=== PATIENT | male | born 1975 | race Caucasian/White ===

== ENCOUNTER 2018-10-26 17:21 | Emergency (ER) | payer SELFPAY ==
[~2018-10-26] VITALS: Ht 177.8 cm; Wt 94.5 kg
[~2018-10-26 17:21] MED LIST: ALEVE220 MG PO; BAYER CHEWABLE81 MG PO; CIPRO500 MG PO; FLAGYL250 MG PO; LAMICTAL25 MG PO; MIRALAX17 GM PO; PROTONIX40 MG PO
[2018-10-26 18:00] VITALS: Ht 177.8 cm; Wt 94.5 kg
[2018-10-26 18:23] LABS: BASOPHILS 0.3 % (0-2); EOSINOPHILS 3.3 % (0-7); HEMATOCRIT 48.3 % (42.0-54.0); HEMOGLOBIN 17.2 g/dL (13.5-17.5); IMMATURE GRANULOCYTES 0.3 % (0-5); LYMPHOCYTES 28.4 % (15-50); MCH 30.1 pg (26.0-34.0); MCHC 35.6 g/dL (31.0-37.0); MCV 84.6 fL (80.0-100.0); MEAN PLATELET VOLUME 9.4 fL (7.4-10.4); MONOCYTES 11.4 % (2-11); NEUTROPHILS 56.3 % (40-80); PLATELET COUNT 233 10x3/uL (130-400); RBC 5.71 10x6/uL (4.20-6.10); RDW 12.5 % (11.5-14.5)
[2018-10-26 18:31] LABS: APPEARANCE CLEAR (CLEAR); BILIRUBIN NEGATIVE (NEGATIVE); COLOR YELLOW (YELLOW); GLUCOSE NEGATIVE (NEGATIVE); KETONE NEGATIVE (NEGATIVE); NITRITE NEGATIVE (NEGATIVE); PROTEIN NEGATIVE (NEGATIVE); SPECIFIC GRAVITY 1.015 (1.005-1.020); UROBILINOGEN NORMAL (NORMAL)
[2018-10-26 18:40] LABS: ALBUMIN 3.9 g/dL (3.4-5.0); ALKALINE PHOSPHATASE 73 U/L (46-116); ALT (SGPT) 38 U/L (10-68); CALC OSMOLALITY 276 mosm/kg (275-300); CALCIUM 9.3 mg/dL (8.5-10.1); CARBON DIOXIDE 29.5 mmol/L (21.0-32.0); CHLORIDE - SERUM 100 mmol/L (98-107); CREATININE - SERUM 0.8 mg/dL (0.6-1.3); GLUCOSE 108 mg/dL (74-106); POTASSIUM - SERUM 3.6 mmol/L (3.5-5.1); SODIUM 138 mmol/L (136-145); UREA NITROGEN 12 mg/dL (7-18); eGFR NON AFRICAN AMERICAN > 90 mL/min (90-120)
[2018-10-26] MEDS ORDERED: DICLOFENAC SODI50 MG PO (19:02)
[2018-10-26] MEDS ORDERED: CYCLOBENZAPRINE10 MG PO (19:02)
[2018-10-26 20:21] VITALS: BP 124/73
== END 2018-10-26 20:22 | disposition home or self-care (01) ==
LOC: D.ER 17:21
PROVIDERS: Family Medicine
DX: M54.16 Radiculopathy, lumbar region (principal); G40.909 Epilepsy, unspecified, not intractable, without status epilepticus; I10 Essential (primary) hypertension; F17.200 Nicotine dependence, unspecified, uncomplicated

== ENCOUNTER 2019-03-06 16:04 | Observation (INO) | payer OTHER ==
[~2019-03-06] VITALS: Ht 177.8 cm; Wt 95.5 kg
--- NOTE | ~2019-03-06 | PN ---
PATIENT:MAKAYLA HARKINS MEDICAL RECORD: [id number] LOCATION:D. D.213 ADMISSION DATE: 03/06/19 PROGRESS NOTE DATE OF SERVICE: 03/07/2019 Mr. Harkins has continued to have episodes of chest discomfort overnight, all relieved with sublingual nitro, some episodes requiring more than 1 sublingual nitro for relief. He was having chest pain during the nuclear stress test with the nuclear stress test has worsened and relieved. Now, he is having recurrent chest discomfort. His stress test showed a mildly depressed ejection fraction of 47%, but there was homogeneous uptake throughout all segments at rest and stress. Due to the recurrent episodes of chest pain that are all relieved with sublingual nitro and the persistence of his symptomatology, we will proceed with coronary angiography. TRANSINT:[id number] Voice Confirmation ID: [id number] DOCUMENT ID: [id number] OSIRIS LOMBARDI MD CC: [id number] DICTATION DATE: 03/07/19 1248 DIAMOND DIE POLISHER: 03/07/19 1431 ADM IN [place] [address] [place] [address]
--- NOTE | ~2019-03-06 | HEMODYNAMI ---
PATIENT:MAKAYLA LISA MEDICAL RECORD: [id number] : 71 LOCATION[facility] D.[address] [facility] [id number] ADMISSION DATE: 03/06/19 Generatedon:03/07/201917:00 Patient name: MAKAYLA LISA Patient #: [id number] SSN: D OB: 1975 Date of study: 03/07/2019 Page: Of Hemodynamic Procedure Report Patient Data Patient Demographics Procedure consent was obtained First Name: MAKAYLA Gender: Male Last Name: SLOAN : 1975 Middle Initial: E Age: 43 year(s) Patient #: [id number] Race: Unknown Additional ID: [id number] Contact details Address: [address] [place] [address] State: [place] City: [place] Zip code: [address] Admission Admission Data Admission Date: 03/06/2019 Admission Time: 19:05 Room #: D.2130 Height (in.): 70 BSA: 2.13 (m2) Height (cm.): 177.8 BMI: 30.19 (kg/m2) Weight (lbs.): 210.43 Weight (kg.): 95.45 Lab Results Lab Result Date: 03/07/2019 Lab Result Time: 0:00 Biochemistry Name Units Result Min Max BUN mg/dl 13 --(--*-)-- 7 18 Creatinine mg/dl 0.7 --(*---)-- 0.6 1.3 CBC Name Units Result Min Max Hemoglobin g/dl 16.7 --(---*)-- 13.5 17.5 Procedure Procedure Types Cath Procedure Diagnostic Procedure [facility] w/Coronaries Sedation Charges Moderate Sedation up to 15 minutes Procedure Description Procedure Date Procedure Date: 03/07/2019 Procedure Start Time: 16:52 Procedure End Time: 16:58 Procedure Staff Name Function Rashid Cárdenas MD Performing Physician Yi Dejesus RT Monitor Carolina Esparza RN Nurse Leti Valenzuela RT Scrub Richie Ahn RT Monitor Buffie Gale RN Nurse Procedure Data Cath Procedure Fluoroscopy Diagnostic fluoroscopy Total fluoroscopy Time: 0.6 time: 0.6 min min Diagnostic fluoroscopy Total fluoroscopy dose: 281 dose: 281 mGy mGy Contrast Material Contrast Material Type Amount (ml) Isovue 300 24 Entry Location Entry Primary Successful Side Size Upsize Upsize Entry Closure Succes sful Closure Location (Fr) 1 (Fr) 2 (Fr) Remarks Device Remarks Femoral Right 5 Fr Exoseal artery Estimated blood loss: 5 ml Diagnostic catheters Device Type Used For End Catheter Placement MULTIPACK Pigtail 5 Fr Procedure catheter MULTIPACK JL 4.0 5Fr Procedure catheter MULTIPACK 3DRC 5Fr Procedure catheter Procedure Complications No complications Procedure Medications Medication Administration Route Dosage 0.9% NaCl I.V. 100 ml/hr Oxygen etCO2 Nasal cannula 2 l/min Lidocaine 2% added to field 20 Heparin Flush Bag added to field 2 bags (1000units/500ml NS) Versed I.V. 2 mg Fentanyl I.V. 50 mcg Versed I.V. 1 mg Fentanyl I.V. 50 mcg Hemodynamics Rest BSA: 2.13 (m2) HGB: 16.7 (g/dl) O2 Consumption: Estimated: 257.73 (ml/min) O2 Co nsumption indexed: Estimated:121 (ml/min/m) Heart Rate: 70 (bpm) Pressure Samples Time Site Value (mmHg) Purpose Heart Use Rate(bpm) 16:53 LV 55/25,33 Snapshot 60 Snapshots Pre Cath Intra NCS Post Cath Vital Signs Time Heart Resp SPO2 etCO2 NIBP (mmHg) Rhythm Pain Sedation Rate (ipm) (%) (mmHg) Status Level (bpm) 16:31:31 68 16 100 31.5 141/95(112) NSR 0 (11) 10(A) , No pain 16:35:35 67 17 100 35.3 140/89(105) NSR 0 (11) 10(A) , No pain 16:39:43 73 18 100 33 135/86(107) NSR 0 (11) 10(A) , No pain 16:43:55 69 16 95 40.6 121/84(95) NSR 0 (11) 9(A) , No pain 16:48:05 66 12 96 45.8 129/79(97) NSR 0 (11) 9(A) , No pain 16:52:17 76 12 97 45.8 125/79(93) NSR 0 (11) 9(A) , No pain 16:56:29 66 13 97 44.3 118/74(96) NSR 0 (11) 10(A) , No pain Medications Time Medication Route Dose Verified Delivered Reason Notes Eff ectiveness by by 16:30:51 0.9% NaCl I.V. 100 Rashid Carolina used for ml/hr Melia Esparza pharmacy retail support specialist 16:30:58 Oxygen etCO2 2 Rashid Carolina used for Nasal l/min Melia Esparza procedure cannula RN 16:31:03 Lidocaine 2% added 20ml Rashid Rashid for local to vial Melia Cárdenas MD anesthetic field 16:31:07 Heparin Flush added 2 Rashid Rashid used for Bag to bags Melia Cárdenas MD procedure (1000units/500ml field NS) 16:38:14 Versed I.V. 2 mg Rashid Buffie for Melia Gale RN sedation 16:38:21 Fentanyl I.V. 50 Rashid Quintnaaie for mcg Melia Gale RN sedation 16:45:26 Versed I.V. 1 mg Rashid Buffie for Melia Gale RN sedation 16:45:31 Fentanyl I.V. 50 Rashid Buffie for mcg Melia Gale RN sedation Procedure Log Time Note 16:02:55 Patient Height : 70 inches 16:03:00 Patient Weight : 210.43 lbs 16:03:37 Lab Result : Creatinine 0.7 mg/dl 16:03:37 Lab Result : BUN 13 mg/dl 16:03:37 Lab Result : Hemoglobin 16.7 g/dl 16:04:15 Diagnostic Cath status Elective 16:04:17 Yi Dejesus RT(R) sent for patient. Start room use. 16:04:18 Time tracking: Regular hours (M-F 7:00 - 5:00) 16:04:23 Plan of Care:Hemodynamics will remain stable., Cardiac rhythm will remain stable., Comfort level will be maintained., Respiratory function will remain adequate., Patient/ family verbilizes understanding of procedure., Procedure tolerated without complication., Recovers from procedure without complications.. 16:30:43 Vital chart was started 16:30:51 0.9% NaCl 100 ml/hr I.V. was administered by Carolina Isaias RN; used for procedure; 16:30:58 Oxygen 2 l/min etCO2 Nasal cannula was administered by Carolina Esparza RN; used for procedure; 16:31:03 Lidocaine 2% 20ml vial added to field was administered by Rashid Cárdenas MD; for local anesthetic; 16:31:07 Heparin Flush Bag (1000units/500ml NS) 2 bags added to field was administered by Rashid Cárdenas MD; used for procedure; 16:34:28 Patient received from Med II to [facility] 2 Alert and oriented. Tansferred to table in Supine position. 16:34:29 Warm blankets applied, and rupinder hugger turned on for patient comfort. 16:34:29 Correct patient and procedure confirmed by team. 16:34:30 Signed procedure consent form obtained from patient. 16:34:31 ECG and BP/O2 sat monitors applied to patient. 16:34:32 Baseline sample Acquired. 16:34:36 Rhythm: sinus rhythm 16:34:38 Full Disclosure recording started 16:34:41 H&P Date Dictated: 03/07/2019 New H&P dictated by physician.. 16:34:50 Pre-procedure instructions explained to patient. 16:34:51 Pre-op teaching completed and patient verbalized understanding. 16:34:52 Family in waiting room. 16:34:54 Patient NPO since Midnight. 16:34:56 Is the patient allergic to Iodine/contrast media? No. 16:34:57 Was the patient premedicated? No 16:34:58 Is patient on blood thinner?Yes 16:35:06 ACC The patient was administered the following blood thiners within the last 24 hours: ACCPlavix 16:35:08 Patient diabetic? No. 16:35:14 Previous problem with sedation/anesthesia? No ? 16:35:15 Snore? Yes 16:35:16 Sleep apnea? Yes 16:35:17 Deviated septum? No 16:35:18 Opens mouth fully? Yes 16:35:18 Sticks out tongue? Yes 16:35:20 Airway obstruction? No ? 16:35:22 Dentures? No ? 16:35:32 Pre procedure: right dorsailis pedis pulse 2+ Normal; easily identifiable; not easily obliterated 16:35:35 Pre procedure: left dorsailis pedis pulse 2+ Normal; easily identifiable; not easily obliterated 16:35:37 Patient pain scale 0/10 ?. 16:35:46 IV patent on arrival in left forearm with 0.9% NaCl at O. 16:35:57 Lab results completed and on chart. 16:36:01 Right groin area was prepped with chlora-prep and draped in sterile fashion 16:36:02 Alarms reviewed by R. N. 16:36:02 Sharps counted by scrub and verified by R.N. 16:36:06 Physician arrived 16:36:07 --------ALL STOP TIME OUT------ 16:36:07 Final Timeout: patient, procedure, and site verified with staff and physician. All members of the team are in agreement. 16:36:09 Right groin site verified by team. 16:36:18 Maximum allowable Isovue 370 dose 300ml. Physician notified. (300ml for normal creatinines. For patients with creatinine of 1.7 or higher multiply weight(kg) x 5 divided by creatinine.) 16:36:22 Fire Safety Assessment: A--An alcohol-based skin anteseptic being used preoperatively., C--Open oxygen or nitrous oxide is being used., D--An ESU, laser, or fiber-optic light is being used. 16:36:24 Physical assessment completed. ASA score P 2 - A patient with mild systemic disease as per Rashid Cárdenas MD. 16:36:27 Sedation plan: IV Moderate Sedation Medication:Versed, Fentanyl 16:36:32 Use device set Femoral Dx 16:36:33 ACIST Syringe (83451) opened to sterile field. 16:36:33 Bag Decanter () opened to sterile field. 16:36:33 Medline Cath Pack ([id number]) opened to sterile field. 16:36:34 DIAGNOSTIC WIRE .035 260cm J wire (822229) opened to sterile field. 16:36:35 ACIST Hand Control (77292) opened to sterile field. 16:36:36 ACIST Manifold (72557) opened to sterile field. 16:36:36 DIAGNOSTIC Multipack 5Fr catheter set (LO6086) opened to sterile field. 16:36:37 Tegaderm 4 x 4 (1626W) opened to sterile field. 16:36:38 SHEATH 5FR Perry (UJS607) opened to sterile field. 16:38:14 Versed 2 mg I.V. was administered by Lin Gale RN; for sedation; 16:38:21 Fentanyl 50 mcg I.V. was administered by Lin Gale RN; for sedation; 16:43:31 Zero performed for pressure channel P1 16:45:26 Versed 1 mg I.V. was administered by Lni Gale RN; for sedation; 16:45:31 Fentanyl 50 mcg I.V. was administered by Lin Gale RN; for sedation; 16:52:50 Local anesthetic to right femoral artery with Lidocaine 2% by Rashid Cárdenas MD.INITIAL ACCESS ONLY 16:52:58 A 5 Fr sheath was inserted into the Right Femoral artery 16:53:48 A MULTIPACK Pigtail 5 Fr catheter was advanced over the wire and used for Procedure. 16:53:58 LV gram done using CAMPOS 16:54:01 Injector settings: Ml/sec: 10, Volume: 20, 16:54:02 LV hemodynamics recorded. 16:54:06 EF : 60 % 16:54:07 Catheter exchanged over wire. 16:54:10 A MULTIPACK JL 4.0 5Fr catheter was advanced over the wire and used for Procedure. 16:55:02 LCA angiography performed. 16:55:24 Catheter exchanged over wire. 16:55:27 A MULTIPACK 3DRC 5Fr catheter was advanced over the wire and used for Procedure. 16:55:58 RCA angiography performed. 16:56:25 Catheter removed. 16:56:26 EXOSEAL 5Fr (EX500) opened to sterile field. 16:56:33 Sheath removed intact; hemostasis achieved with Exoseal to the Right Femoral artery. 16:56:35 Procedure ended.(Physican Out) 16:57:20 Fluoroscopy time 00.60 minutes. 16:57:23 Fluoroscopy dose: 281 mGy 16:57:23 Flurop Dose total: 281 16:57:28 Contrast amount:Isovue 300 24ml. 16:57:30 Sharps counted by scrub and verified by R.N. 16:57:30 Insertion/operative site no bleeding no hematoma. 16:57:33 Post-op/insertion site Right Femoral artery dressed using a 4 x 4 and Tegaderm. 16:57:37 Post right femoral artery:stable, soft, clean and dry 16:57:38 Post Procedure Pulses reassessed and unchanged 16:57:40 Post-procedure physical assessment completed. ASA score P 2 - A patient with mild systemic disease as per Rashid Cárdenas MD. 16:57:43 Post procedure rhythm: unchanged. 16:57:56 Estimated blood loss: 5 ml 16:57:57 Post procedure instruction explained to patient.Patient verbalizes understanding. 16:57:58 Patient needs reinforcement of post procedure teaching. 16:58:15 Procedure type changed to Cath procedure, Diagnostic procedure, LHC, LHC w/Coronaries, Sedation Charges, Moderate Sedation up to 15 minutes 16:58:29 Procedure and supply charges have been captured, reviewed, submitted and are correct. 16:58:31 Procedure Complication : No complications 16:58:35 Vital chart was stopped 16:58:35 See physician's report for complete and final results. 16:58:39 Report given to PCU. 16:58:41 Patient transfered to PCU with Stretcher. 16:58:43 Procedure ended. 16:58:43 Full Disclosure recording stopped 16:58:51 End room use (Document Last) Device Usage Item Name Manufacture Quantity Catalog Hospital Part Current Minimal L ot# / Number Charge Number Stock Stock Serial# Code ACIST Acist 1 68325 [id number] 531791 520419 20 Syringe Medical (18798) Systems Inc Bag Microtek 1 2001S 389912 02539 836705 5 Decanter Medical Inc. () Medline Medline 1 [id number] 547587 39538 186766 5 Cath Pack ([id number]) DIAGNOSTIC St Fabien 1 364062 220569 861880 686201 30 WIRE .035 260cm J wire (122056) ACIST Hand Acist 1 46027 198632 991204 695788 5 Control Medical (81026) Systems Inc ACIST Acist 1 56878 582390 059076 230031 5 Manifold Medical (92282) Systems Inc DIAGNOSTIC Cardinal 1 TX1571 858725 21581 325829 30 Multipack Health 5Fr catheter set (VT6460) Tegaderm 4 3M 1 1626W 720902 359213 344421 5 x 4 (1626W) SHEATH 5FR Terumo 1 ZST078 912862 639895 536325 5 Perry (YXL903) MULTIPACK Cardinal 1 256240 5 Pigtail 5 Health Fr catheter MULTIPACK Cardinal 1 868441 5 JL 4.0 5Fr Health catheter MULTIPACK Cardinal 1 615268 5 3DRC 5Fr Health catheter EXOSEAL 5Fr Cardinal 1 EX500 833342 103007 262574 10 (EX500) Health Signature Audit [facility] Time Signature Unsigned Intra-Procedure 03/07/2019 Richie Ahn 5:00:41 PM RT(R) Signatures Monitor : Yi Dejesus RT Signature : Date : Time : Monitor : Richie Ahn RT Signature : Date : Time : [place] [id number] [place] [address]
--- NOTE | ~2019-03-06 | HP ---
PATIENT: MAKAYLA LISA MEDICAL RECORD: [id number] ACCOUNT: [id number] LOCATION:[address] : 71 ADMISSION DATE: 03/06/19 PCP: SALVADOR GUPTA MD HISTORY AND PHYSICAL EXAMINATION ADMITTING DIAGNOSES: 1. Chest pain compatible with angina. 2. Family history of coronary artery disease. 3. Hypertension. HISTORY OF PRESENT ILLNESS: This is a gentleman with no previous history of ischemic heart disease who presents with chest discomfort onset today, relatively typical anginal discomfort centered around the left chest area, pressure, aching sensation, radiation to the left jaw and down his left arm associated with shortness of breath. He has received nitro in the Emergency Room. It has helped the pain, but the pain is still there at a sizable amount. His EKG is normal. He has a strong family history of coronary artery disease. PHYSICAL EXAMINATION: GENERAL APPEARANCE: Well-nourished, well-developed, appears stated age. Level of distress, comfortable. PSYCHIATRIC: Mental status, alert, normal affect. Orientation, oriented to time, place and person. EYES: Lids and conjunctiva, noninjected. No discharge, no pallor. ENT: Lips, teeth, gums, normal dentition. Oropharynx, no cyanosis, no pallor. NECK: Carotid arteries, bilateral normal upstroke, no bruits, no thrills. JUGULAR VEINS: No jugular venous pressure or distention. CERVICAL LYMPH NODES: Nontender, nonenlarged. THYROID: Not enlarged. Nontender. No nodules. LUNGS: Respiratory effort, unlabored. CHEST: Normal curvature. No thoracic deformity. No chest wall tenderness. Percussion, resonant. Auscultation, clear. No wheezes, no rales, no rhonchi. CARDIOVASCULAR: Precordial exam, nondisplaced. No heaves or pericardial thrills. Rate and rhythm, regular. Heart sounds, normal S1, normal S2. No S3, no gallop, no rub. Systolic murmur, not heard. Diastolic murmur, not heard. EXTREMITIES: No cyanosis, no edema. Peripheral pulses, full and equal in all extremities, except as noted. No bruits appreciated. ABDOMEN: Soft, nondistended. Normal aorta. No bruit. Nontender. No masses. Liver, nontender, no hepatomegaly. Spleen, nontender, no splenomegaly. MUSCULOSKELETAL: No joint tenderness. No joint swelling. No erythema. NEUROLOGICAL: Normal gait, normal strength, normal tone. SKIN: Warm and dry. OVERALL IMPRESSION: Chest pain compatible with angina. Risk factors of hypertension, family history of coronary artery disease, but the EKG is totally normal. At this time, we will admit him, get a troponin in the morning. Plan for stress testing with Cardiolite imaging unless troponin is elevated and he has EKG changes. Further care depends upon findings of the stress test. TRANSINT:[id number] Voice Confirmation ID: [id number] DOCUMENT ID: [id number] HISTORY AND PHYSICAL [id number] MAKAYLA LISA JEFFREY MD CC: [id number] DICTATION DATE: 03/06/191651 REPAIR TECHNICIAN: 03/06/192216 ADM IN [facility] [address] [place] [address]
--- NOTE | ~2019-03-06 | OP ---
PATIENT NAME: MAKAYLA LISA MEDICAL RECORD: [id number] :71 LOCATION:D.M2 D.2130 ADMISSION DATE:03/06/19 SURGEON: OSIRIS LOMBARDI MD DATE OF OPERATION: 03/07/2019 PROCEDURES: 1. Left heart catheterization. 2. Selective coronary angiography. 3. Left ventriculogram. INDICATION: Chest pain compatible with angina; recurrent chest pain, relieved with sublingual nitro. PROCEDURE IN DETAIL: After informed consent was obtained with detailed description of risks and benefits as well as alternative therapies, the patient elected to proceed with angiogram and heart catheterization. The right femoral area was prepped and draped in normal sterile fashion. The right femoral artery was cannulated via modified Seldinger technique with placement of 5-Bahraini sheath. All catheters were exchanged through this sheath. FINDINGS: Left ventriculogram performed in standard 30-degree CAMPOS view reveals good cardiac wall motion. Ejection fraction 60%. SELECTIVE CORONARY ANGIOGRAPHY: Left main, left anterior descending, left circumflex, and right coronary are all smooth-walled vessels with no angiographic evidence of coronary artery disease. OVERALL IMPRESSION: 1. No angiographic evidence of coronary artery disease. 2. Normal left heart pressures. 3. Normal left ventricular systolic function. Chest pain is noncardiac in etiology. No further cardiac workup needs to be ascertained. TRANSINT:[id number] Voice Confirmation ID: [id number] DOCUMENT ID: [id number] OSIRIS LOMBARDI MD CC: [id number] DICTATION DATE: 03/07/191701 WARP DOFFER: 03/07/191954 ADM IN [place] [address] [place] [address]
--- NOTE | ~2019-03-06 | DS ---
PATIENT:MAKAYLA HARKINS :71 MEDICAL RECORD: [id number] DISCHARGE SUMMARY ADMISSION DATE: 03/06/19 DISCHARGE DATE: 03/07/19 DATE OF SERVICE: 03/07/2019 DISCHARGE DIAGNOSES: 1. Chest pain compatible with angina. 2. Hypertension. 3. Family history of coronary artery disease. HISTORY AND HOSPITAL COURSE: Mr. Harkins presented with anginal symptomatology. Had recurrent episodes of chest pain, relieved with sublingual nitro. Had a nuclear stress test. This showed a mildly depressed ejection fraction and possible inferior perfusion defect. He continued to have episodes of chest discomfort. He underwent cardiac catheterization revealing no significant coronary artery disease and a normal ejection fraction. At this time, no other cardiac workup or treatment is necessary. TRANSINT:[id number] Voice Confirmation ID: [id number] DOCUMENT ID: [id number] OSIRIS LOMBARDI MD CC: [id number] DICTATION DATE: 03/07/19 170 CDS SALES ADVISOR: 03/08/19 0908 DIS IN 03/07/19 [place] [id number] [place] [id number]
--- NOTE | ~2019-03-06 | ST ---
PATIENT:MAKAYLA LISA MEDICAL RECORD: [id number] SEX: M LOCATION:D. D.213 ORDER #: ADMISSION DATE: 03/06/19 AGE OF PATIENT: 43 REFERRING PHYSICIAN: INTERPRETING PHYSICIAN: OSIRIS LOMBARDI MD DATE OF SERVICE: 03/06/2019 INDICATION: Ongoing chest discomfort compatible with angina. The patient was exercised on standard Lexiscan protocol with 29 mCi of sestamibi injected at peak stress. Rest images were done previously with 8 mCi. FINDINGS: Gated SPECT reveals a mildly depressed ejection fraction of 47%. SPECT imaging Cardiolite was used as myocardial perfusion agent. In the short axis view, there does appear to be reversibility anteroseptally; however, this is not seen in the other views. In long axis view, there appears to be perfusion defect, in the inferior segments, worse at rest with some improvement with stress showing reversed redistribution. The remaining segments are with homogeneous uptake at rest and stress. his is mildly abnormal nuclear stress test. In one view, there does appear to be reversibility anteroseptally. In an another view, there appears to be a defect at rest in the inferior segments improving with stress segments. There is no clear cut ischemic burden in all the views. OVERALL IMPRESSION: This is a minimally abnormal nuclear stress test, possible reversibility anteriorly, possible fixed perfusion defect inferiorly, mildly depressed ejection fraction of 47%, giving actually a low likelihood of hemodynamically significant coronary artery disease, but her symptomatology continues. Due to the abnormality of the stress test, we would proceed with coronary angiography. TRANSINT:[id number] Voice Confirmation ID: [id number] DOCUMENT ID: [id number] OSIRIS LOMBARDI MD CC: [id number] DICTATION DATE: 03/07/191710 SWEATBAND CUTTING MACHINE OPERATOR: 03/08/19 0928 DIS IN 03/07/19 [facility] [address] [place] [address]
[~2019-03-06 16:04] MED LIST changes: +CYCLOBENZAPRINE10 MG PO; +DICLOFENAC SODI50 MG PO
[2019-03-06 16:38] VITALS: BP 128/89
[2019-03-06 16:43] LABS: BASOPHILS 0.5 % (0-2); EOSINOPHILS 2.5 % (0-7); HEMATOCRIT 46.4 % (42.0-54.0); HEMOGLOBIN 16.7 g/dL (13.5-17.5); IMMATURE GRANULOCYTES 0.1 % (0-5); LYMPHOCYTES 37.1 % (15-50); MCH 29.8 pg (26.0-34.0); MCV 82.7 fL (80.0-100.0); MEAN PLATELET VOLUME 9.8 fL (7.4-10.4); MONOCYTES 10.5 % (2-11); NEUTROPHILS 49.3 % (40-80); PLATELET COUNT 240 10x3/uL (130-400); RBC 5.61 10x6/uL (4.20-6.10); RDW 12.2 % (11.5-14.5); WBC 7.3 10x3/uL (4.8-10.8)
[2019-03-06 16:54] LABS: APTT 29.8 SECONDS (22.8-39.4); INR 1.02 (0.85-1.17); PROTIME 12.9 SECONDS (11.6-15.0)
[2019-03-06 17:11] LABS: ALBUMIN 3.6 g/dL (3.4-5.0); ALKALINE PHOSPHATASE 64 U/L (46-116); ALT (SGPT) 43 U/L (10-68); BILIRUBIN - TOTAL 0.24 mg/dL (0.2-1.3); CALC OSMOLALITY 275 mosm/kg (275-300); CALCIUM 8.8 mg/dL (8.5-10.1); CARBON DIOXIDE 26.4 mmol/L (21.0-32.0); CHLORIDE - SERUM 102 mmol/L (98-107); CREATININE - SERUM 0.7 mg/dL (0.6-1.3); GLUCOSE 92 mg/dL (74-106); POTASSIUM - SERUM 3.8 mmol/L (3.5-5.1); PROTEIN - SERUM 7.4 g/dL (6.4-8.2); SODIUM 138 mmol/L (136-145); UREA NITROGEN 13 mg/dL (7-18); eGFR NON AFRICAN AMERICAN > 90 mL/min (90-120)
[2019-03-06 17:23] LABS: CKMB 0.6 U/L (0.0-3.6); CREATINE KINASE 95 UL (21-232); TROPONIN-I < 0.017 ng/mL (0.000-0.060)
[2019-03-06] MEDS ORDERED: COREG 3.1253.125 MG PO (20:43)
[2019-03-06 21:57] VITALS: BP 117/82; Ht 177.8 cm; Wt 95.5 kg
[2019-03-07 05:14] VITALS: BP 111/64
[2019-03-07 07:27] VITALS: BP 118/69
[2019-03-07 11:10] VITALS: BP 123/78
[2019-03-07 15:22] VITALS: BP 122/76
--- NOTE | 2019-03-08 08:32 | MORECARE ---
CASE MANAGEMENT DISCHARGE SUMMARY PATIENT: MAKAYLA LISA UNIT: [id number] ADM DATE: 03/06/19 AGE: 43 : 71 SEX: M ROOM/BED: D.2130 AUTHOR: JESS DONAHUE PHYSICIAN: REFERRING PHYSICIAN: OSIRIS LOMBARDI MD DATE OF SERVICE: 03/08/19 Discharge Plan Patient Name: MAKAYLA LISA Facility: [facility]:[place] : 1975 Planned Disposition: Home Anticipated Discharge Date: 03/07/19 Discharge Date: 03/07/2019 Expected LOS: 1 Initial Reviewer: [email or web address] Initial Review Date: 03/08/2019 Generated: 03/08/19 9:32 am Patient Name: MAKAYLA LISA Page [phone] at 0832 All edits/amendments must be made on the electronic document DICTATION DATE: 03/08/19 0832 CENTRIFUGAL CASTING MACHINE TENDER: JOHN 03/08/19 0832 RPT#: [id number] DC DATE:03/07/19 STATUS: DIS IN [facility] [address] [place] [address] END OF REPORT
== END 2019-03-07 20:10 | disposition home or self-care (01) ==
LOC: D.ER 16:04 → OBSVTIME 19:05 → D.M2 19:05
PROVIDERS: Family Medicine; ADMIT Internal Medicine Interventional Cardiology; ATTEND Internal Medicine Interventional Cardiology
DX: R07.89 Other chest pain (principal)

== ENCOUNTER → 2019-03-19 12:31 | Outpatient (CLI) | payer OTHER ==
[2019-03-06 21:57] VITALS: BMI 30.1
[~2019-03-19 12:31] MED LIST changes: +COREG 3.1253.125 MG PO
== END | disposition home or self-care (01) ==
LOC: D.NM 12:31
PROVIDERS: ATTEND Family Medicine
DX: R07.89 Other chest pain (principal)

== ENCOUNTER → 2019-06-20 08:05 | Outpatient (CLI) | payer OTHER ==
[2019-03-06 21:57] VITALS: BMI 30.1
[2019-06-21 11:10] LABS: IMMUNOGLOBULIN A 326 mg/dL (90-386)
[2019-06-23 19:07] LABS: T-TRANSGLUTAMINASE IGA 28 U/mL (0-3); T-TRANSGLUTAMINASE IGG 17 U/mL (0-5)
[2019-06-24 14:09] LABS: ANTIGLIADIN IGA 19 units (0-19); ANTIGLIADIN IGG 68 units (0-19)
== END | disposition home or self-care (01) ==
LOC: D.US 08:00
PROVIDERS: ATTEND Internal Medicine Gastroenterology
DX: R10.9 Unspecified abdominal pain (principal)

== ENCOUNTER → 2019-08-19 07:34 | Outpatient (CLI) | payer OTHER ==
[2019-03-06 21:57] VITALS: BMI 30.1
[~2019-08-19 07:34] MED LIST changes: +HYDROCODON-ACE1 EAC7 PO; +RANITIDINE HCL150 M1 PO
== END | disposition home or self-care (01) ==
LOC: D.RAD 07:34
PROVIDERS: ATTEND Internal Medicine Gastroenterology
DX: R10.13 Epigastric pain (principal); K90.0 Celiac disease

== ENCOUNTER → 2019-09-02 09:37 | Outpatient (CLI) | payer OTHER ==
[2019-03-06 21:57] VITALS: BMI 30.1
== END | disposition home or self-care (01) ==
LOC: D.NM 07-30 09:30
PROVIDERS: ATTEND Internal Medicine Gastroenterology
DX: K76.0 Fatty (change of) liver, not elsewhere classified (principal)

== ENCOUNTER 2019-09-09 09:05 | Day surgery (SDC) | payer OTHER ==
[~2019-09-09] VITALS: Ht 170.2 cm; Wt 101.6 kg
[~2019-09-09 09:05] MED LIST changes: -HYDROCODON-ACE1 EAC7 PO; -RANITIDINE HCL150 M1 PO
[2019-09-09 09:58] LABS: HEMATOCRIT 45.9 % (42.0-54.0); HEMOGLOBIN 15.8 g/dL (13.5-17.5); MCH 29.5 pg (26.0-34.0); MCHC 34.4 g/dL (31.0-37.0); MCV 85.8 fL (80.0-100.0); MEAN PLATELET VOLUME 9.7 fL (7.4-10.4); RBC 5.35 10x6/uL (4.20-6.10); RDW 12.3 % (11.5-14.5); WBC 6.7 10x3/uL (4.8-10.8)
[2019-09-09] MEDS ORDERED: RANITIDINE HCL150 M1 PO (10:18)
[2019-09-09] MEDS ORDERED: PROTONIX40 MG PO (10:19)
[2019-09-09 10:31] VITALS: BP 114/73; Ht 170.2 cm; Wt 101.6 kg
[2019-09-09] MEDS ORDERED: HYDROCODON-ACE1 EAC7 PO (17:42)
--- NOTE | 2019-09-09 19:07 | NUR ---
DC INSTRUCTIONS GIVEN TO PT'S SPOUSE. STATES UNDERSTANDING.
--- NOTE | 2019-09-09 19:15 | NUR ---
PT STATES HAVING PAIN LEVEL OF 8/10 TO ABD. WILL ADMINISTER NORCO [phone] PER ORDER.
== END 2019-09-09 21:25 | disposition home or self-care (01) ==
LOC: D.OPS 09:05
PROVIDERS: Anesthesiology; ATTEND Surgery
DX: K82.8 Other specified diseases of gallbladder (principal); B96.81 Helicobacter pylori [H. pylori] as the cause of diseases classified elsewhere; K21.0 Gastro-esophageal reflux disease with esophagitis; I10 Essential (primary) hypertension

== ENCOUNTER 2020-04-13 05:10 | Observation (INO) | payer OTHER ==
[2020-04-13] VITALS (7 sets, daily range): BP systolic 118–143; BP diastolic 66–96; Ht 177.8 cm; Wt 104.5 kg
[~2020-04-13] VITALS: Ht 177.8 cm; Wt 104.5 kg
[~2020-04-13 05:10] MED LIST changes: +HYDROCODON-ACE1 EAC7 PO; +RANITIDINE HCL150 M1 PO
[2020-04-13] MEDS ORDERED: PEPCID40 MG PO (05:17)
[2020-04-13 05:57] LABS: BASOPHILS 0.5 % (0-2); EOSINOPHILS 3.3 % (0-7); HEMATOCRIT 42.4 % (42.0-54.0); HEMOGLOBIN 14.9 g/dL (13.5-17.5); IMMATURE GRANULOCYTES 0.2 % (0-5); LYMPHOCYTES 36.8 % (15-50); MCH 30.2 pg (26.0-34.0); MCHC 35.1 g/dL (31.0-37.0); MEAN PLATELET VOLUME 9.5 fL (7.4-10.4); MONOCYTES 13.7 % (2-11); NEUTROPHILS 45.5 % (40-80); RBC 4.93 10x6/uL (4.20-6.10); RDW 12.2 % (11.5-14.5)
[2020-04-13 06:03] LABS: CALC OSMOLALITY 275 mosm/kg (275-300); CALCIUM 8.4 mg/dL (8.5-10.1); CARBON DIOXIDE 28.7 mmol/L (21.0-32.0); CHLORIDE - SERUM 102 mmol/L (98-107); POTASSIUM - SERUM 3.4 mmol/L (3.5-5.1); SODIUM 136 mmol/L (136-145); UREA NITROGEN 14 mg/dL (7-18); eGFR NON AFRICAN AMERICAN 85 mL/min (90-120)
[2020-04-13 06:04] LABS: GLUCOSE 155 mg/dL (74-106)
[2020-04-13 06:07] LABS: INR 0.99 (0.85-1.17); PROTIME 13.1 SECONDS (11.6-15.0)
[2020-04-13 06:11] LABS: PLATELET COUNT 188 10x3/uL (130-400)
[2020-04-13 06:19] LABS: ALBUMIN 3.2 g/dL (3.4-5.0); ALKALINE PHOSPHATASE 76 U/L (30-120); ALT (SGPT) 104 U/L (10-68); BILIRUBIN - TOTAL 0.31 mg/dL (0.2-1.3); CKMB 0.9 U/L (0.0-3.6); CREATINE KINASE 109 UL (21-232); MAGNESIUM - SERUM 1.8 mg/dL (1.8-2.4); PROTEIN - SERUM 6.6 g/dL (6.4-8.2)
[2020-04-13 06:26] LABS: TROPONIN-I < 0.017 ng/mL (0.000-0.060)
--- NOTE | 2020-04-13 07:00 | NUR ---
PT CARE ASSUMED AT THIS TIME, PT IS AAO X 4, RESPIRATIONS EVEN AND UNLABORED, PULSES EQUAL AND STRONG, REPORTS RELIEF OF PAIN TO 1/10 SINCE MEDICATIONS WERE ADMINISTERED, IS COMFORTABLE AND DENIES NEEDS, CALL LIGHT IN REACH.
[2020-04-13 12:13] LABS: CKMB 1.1 U/L (0.0-3.6); CREATINE KINASE 106 UL (21-232)
[2020-04-13 12:15] LABS: TROPONIN-I < 0.017 ng/mL (0.000-0.060)
--- NOTE | 2020-04-13 17:11 | NUR ---
PROVIDED VERBAL AND WRITTEN DISCHARGE TEACHING TO PT, WHO VERBALIZED UNDERSTANDING REGARDING TEACHING. D/C LT FA IV WITH CATHETER TIP INTACT. HEART MONITOR REMOVED AND TAKEN TO FLAGGER. PT REFUSED WHEELCHAIR, LEFT UNIT VIA AMBULATORY, WITH ALL BELONGINGS, NAD NOTED.
== END 2020-04-13 17:13 | disposition home or self-care (01) ==
LOC: D.ER 05:10 → D.M2 08:07 → OBSVTIME 08:07 → D.SDCHOLD 15:26 → D.M2 15:26
PROVIDERS: Emergency Medicine; Family Medicine; ADMIT Family Medicine; ATTEND Family Medicine
DX: I20.0 Unstable angina (principal); E87.6 Hypokalemia; I10 Essential (primary) hypertension; G40.909 Epilepsy, unspecified, not intractable, without status epilepticus; K21.9 Gastro-esophageal reflux disease without esophagitis; R73.9 Hyperglycemia, unspecified; R20.0 Anesthesia of skin